=== PATIENT | male | born 1955 ===

== ENCOUNTER → 2022-12-17 10:00 | Outpatient (CLI) | payer MEDICARE, SELFPAY ==
--- NOTE | ~2022-12-17 | MR_ITS ---
EXAMINATION: MR knee LT wo con DATE: 12/17/2022 10:41 INDICATION: Instability of the left knee TECHNIQUE: Magnetic resonance imaging (MRI) of the left knee was performed without intravenous contra st. Sequences included coronal PD-weighted FSE, coronal PD-weighted FS FSE, sagittal T2-weighted FSE , sagittal PD-weighted FS FSE and axial PD weighted fat saturated FSE. COMPARISON: None. FINDINGS: Medial compartment: Tear of the posterior horn of the medial meniscus with a primary longitudinal horizontal component ex tending to the inferior articular surface. More subtle increased signal extends contact the superior articular surface suggesting the tear is complex.. Small anteriorly displaced meniscal flap at the la teral side of the tear near the posterior root. Tiny partial-thickness chondral fissure at the centra l aspect of the medial tibial plateau. Articular cartilage appears otherwise normal. Lateral compartment: Lateral meniscus is normal. Chondral swelling with mild surface irregularity along the posterior aspe ct of the lateral tibial plateau. Normal cartilage along the weightbearing lateral femoral condyle. Patellofemoral compartment: Trochlear cartilage is normal. Small region of heterogeneous cartilage signal suggesting mild partial -thickness fissuring at the central aspect of the apical ridge and immediately adjacent lateral facet . Ligaments and tendons: Tear of the anterior cruciate ligament. Posterior cruciate ligament is normal. There is mild thickeni ng of the proximal medial collateral and fibular collateral ligaments without surrounding edema consi stent with scarring related to chronic sprains. Patellar tendon is normal. Mild distal quadriceps ten dinopathy without tear. Mild tendinopathy without tear at the distal semimembranosus tendon. The visu alized medial and lateral hamstring tendons as well as the iliotibial band are otherwise normal. Fluid: Physiologic amount of fluid in the joint space. No loose osteochondral bodies identified. Small Tang 's cyst. Osseous/other: Normal marrow signal. No fracture or pathologic marrow replacing process. IMPRESSION: 1. Complete tear of the anterior cruciate ligament with mild scarring likely related to additional ch ronic sprains of the proximal medial and fibular collateral ligaments. 2. Complex tear of the posterior horn of the medial meniscus. 3. 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 4. Small Tang's cyst. Reviewed, dictated and finalized at location A. IMPRESSION: 1. Complete tear of the anterior cruciate ligament with mild scarring likely re lated to additional chronic sprains of the proximal medial and fibular collater al ligaments. 2. Complex tear of the posterior horn of the medial meniscus. 3. Mild tricompartmental osteoarthritis with small regions of low to moderate g rade chondromalacia in all 3 compartments. 4. Small Tang's cyst.
== END ==
PROVIDERS: PCP Family Medicine; Visit Provider Orthopaedic Surgery
DX: M17.12 Unilateral primary osteoarthritis, left knee (principal); S83.232A Complex tear of medial meniscus, current injury, left knee, initial encounter; X58.XXXA Exposure to other specified factors, initial encounter; S83.512A Sprain of anterior cruciate ligament of left knee, initial encounter; M71.22 Synovial cyst of popliteal space [Baker], left knee
CPT/HCPCS: 73721